=== PATIENT | female | born 1930 | race Two or more races ===

== ENCOUNTER 2018-06-24 08:07 | Outpatient (CLI) | payer MEDICARE, MEDICAID ==
[~2018-06-24] VITALS: Ht 157.5 cm; Wt 50.3 kg
[2018-06-24] MEDS ORDERED: IOHEXOL-350 100 ML VIAL IV ONE ×2 (11:05→12:25)
[2018-06-24] MEDS ORDERED: NITROGLYCERIN 0.4 MG/TAB BOTTLE SL ONE (11:30)
[2018-06-24] MEDS ORDERED: IV NS 0.9% 500 ML IV PRN (11:30)
[2018-06-24] MEDS ORDERED: METOPROLOL TARTRATE INJ 5 MG/5 ML AMPUL ONE (11:55)
[2018-06-24] MEDS ORDERED: IV NS 0.9% 250 ML IV ONE (12:25)
[2018-06-24] MEDS ORDERED: CT SWABBABLE VALVE TRANS SET 1 EA INFUS.SET MC ONE (12:25)
[2018-06-24 12:42] VITALS: BP 140/72
--- NOTE | 2018-06-24 13:15 | NUR ---
ICU/RN: Pt s/p CTA. New IV #20 inserted R AC x1 attempt. Pt tolerated procedure well. Initial and final telemetry reading NSR 60 with BBB, occasionally V-pacing. Report given to kettle operator head for transfer back to [place] for [facility].
== END 2018-06-24 23:59 | disposition home or self-care (01) ==
LOC: CT 08:07
PROVIDERS: ATTEND Internal Medicine
DX: I25.10 Atherosclerotic heart disease of native coronary artery without angina pectoris (principal); I51.7 Cardiomegaly; M47.814 Spondylosis without myelopathy or radiculopathy, thoracic region
CPT/HCPCS: 75574; J3490; J7050; Q9967 ×2